=== PATIENT | female | born 1965 | race Caucasian/White ===

== ENCOUNTER 2017-03-25 08:26 | Observation (INO) ==
[2017-03-25] MEDS ORDERED: Regadenoson 0.4 MG/5 ML SYRINGE IVP ONE (08:41)
[2017-03-25] MEDS ORDERED: Ondansetron ODT 4 MG TAB.RAPDIS SL PRN (11:23)
[2017-03-25] MEDS ORDERED: Naloxone 0.4 MG/ML INJ IVP PRN (11:23)
[2017-03-25] MEDS ORDERED: Acetaminophen 325 MG TABLET PO PRN (11:23)
--- NOTE | 2017-03-25 11:26 | Cardiology History & Physical ---
Date of Encounter: 03/25/17 Time of Encounter: 11:00 Assessment and Plan (1) Chest pain Current Visit: Yes Status: Acute Symptoms concerning for unstable angina. Increasing chest pain over the last three days. Pain does occur with activity and is relieved with rest. Exercise stress test completed one month ago was not completed due to failure to achieve HR, She was noted to have blunted blood pressure response and hypotension during recovery. She was scheduled to do a pharmacologic test today. Unable to complete due to bradycardia and hypotension. With increasing symptoms she is recommended to undergo LHC. Indications, benefits, risks, and alternatives discussed. She agrees to proceed. TTE ordered. Check CBC, BMP, and coags prior to LHC. Will continue IV fluid for hypotension. Qualifiers: Chest pain type: unspecified Qualified Code(s): R07.9 - Chest pain, unspecified (2) Abnormal stress test Current Visit: Yes Status: Acute (3) Bradycardia Current Visit: Yes Status: Acute HR found to be in the 40's today. New finding per patient. C/o increasing fatigue and chest pain. Planning for LHC today to r/o ischemic cause. Check TSH. Avoid AV phil blockers. Continue to monitor telemetry. History of Present Illness Chief complaint: Chest pain and fatigue HPI: Ms. Faye is a 51 year old female with a history of hypothyroidism and tobacco use who presented to the out patient stress lab for a pharmacologic stress test. Stress test ordered by Dr. Leonard for chest pain. She was set up for her stress test and found to have sinus bradycardia with heart rate at 44 bpm and T wave inversion. Her blood pressure was found to be 84/58. She was given 750 ml of IV fluid with no improvement in HR or blood pressure. She c/o fatigue. Denies dizziness or lightheadedness. She voiced concern of increasing chest pain symptoms over the past three days. C/o midsternal chest pressure with activity or at rest. Chest pain improves with rest. Denies SOB or diaphoresis. I reviewed findings with Dr. Leonard and direct admission for evaluation and treatment is recommended. Patient agrees with plan. Past Med Surg Social Fam HX - Past Medical History Medical history: thyroid disease Psychiatric history: anxiety, panic disorder - Past Surgical History Surgical History: hysterectomy - Social History Smoking Status: Current every day smoker Smokeless Tobacco Status: No Alcohol use: rarely Drug use: none Medications and Allergies Levothyroxine Sodium [Synthroid] 137 mcg PO DAILY 08/11/16 [History] Multivitamin [Multivitamins] 1 each PO DAILY 08/11/16 [History] Pantoprazole Sodium [Protonix] 40 mg PO DAILY 08/11/16 [History] Doxycycline 100 mg PO BID #14 capsule 02/05/17 [Rx] Allergies sulfamethoxazole [From Bactrim] Adverse Reaction (Verified 02/05/17 06:27) Gastrointestinal Upset trimethoprim [From Bactrim] Adverse Reaction (Verified 02/05/17 06:27) Gastrointestinal Upset All Systems Review: A 10-system review of systems was performed and is negative for pertinent findings except as documented above in the HPI. Physical Examination HR 44 bpm, B/p 84/58. General: Conversant, No Apparent Distress HEENT: Atraumatic, Normocephaly, Mucus Membranes Moist Neck: No JVD, Normal carotid pulses Cardiac: Reg Rate and Rhythm, Normal S1 and S2, No Murmur Lungs: Normal Breath Sounds, No Wheeze, Rales, Rhonchi Neuro: Alert and responsive, No focal deficits noted Abdomen: Soft, Non-Tender Skin: No rashes noted on visualized skin Musculoskeletal: No Chest Wall Tenderness Extremities: No Clubbing, No Cyanosis, No Edema, Normal Pulses Results Intake and Output 03/24/17 03/25/17 03/25/17 23:59 07:59 15:59 Other: Weight 68.039 kg Patient Weight 03/25/17 23:59 Weight 68.039 kg - Imaging and Cardiology Stress Test: pending Echo: pending
[2017-03-25] MEDS ORDERED: 0.9 % Sodium Chloride 500 ML IVC ONE (11:58)
--- NOTE | 2017-03-25 12:45 | Nuclear Medicine Stress Report ---
Single NUC read Name: Iris Faye Date of Study: 03/25/2017 Date: 1965 Ht: 68.0 in Medical Record#: [id number] Age: 51 Wt: 150.0 lb Gender: Female Order #: [id number] Location: [facility] OP Room: Reading Physician: Gaston Gonzalez DO, FACC, FASE, FASNC Ordering Physician: Guille Leonard MD, [facility] Panel Assembler: Haile Harris Impression: Only rest imaging was obtained, which demonstrated a mild intensity, apical septal defect. Stress imaging was not obtained and study was cancelled at ordering physicians request. Nuclear Summary: SPECT myocardial perfusion imaging using Tc99m Sestamibi given intravenously was performed at rest and following cardiac stress testing. The resting images were obtained following initial dose of 10.8 mCi. Findings: Comments * Stress imaging was not obtained. Study cancelled per ordering physician. Apical Perfusion Stress * The apical septal segment shows a mild reduction in perfusion. Updated by Gaston Gonzalez DO, FACC, FASE, FASNC on 03/25/2017 12:38:29 PM electronically signed on 03/25/2017 12:39:29 PM with status of Final
[2017-03-25 12:51] LABS: Basophils # 0.1 K/mcL (0.0-0.2); Basophils % 0.9 %; Eosinophils # 0.2 K/mcL (0.0-0.6); Eosinophils % 2.9 %; Hematocrit 35.3 % (35.3-44.9); Hemoglobin 11.7 g/dL (11.5-15.4); Immature Granulocytes % 0.6 % (0-4); Lymphocytes # 2.4 K/mcL (0.6-4.6); Lymphocytes % 35.7 %; Mean Corpuscular HGB Conc 33.1 g/dL (31.6-35.5); Mean Corpuscular Hemoglobin 30.5 pg (28.0-33.3); Mean Corpuscular Volume 92.2 fL (83.0-100.0); Mean Platelet Volume 8.8 fL (9.4-12.4); Monocytes # 0.7 K/mcL (0.0-1.3); Monocytes % 10.9 %; Neutrophils # 3.3 K/mcL (1.6-8.9); Platelet Count 205 K/mcL (140-400); Red Blood Count 3.83 M/mcL (3.82-4.97); Red Cell Distribution Width 12.3 % (11.5-14.5)
[2017-03-25 12:57] LABS: INR 1.1; Prothrombin Time 11.4 Seconds (9.4-12.1)
[2017-03-25 13:00] LABS: Activated Partial Thrombo Time 31.3 Seconds (26.0-36.0)
[2017-03-25 13:04] LABS: Alanine Aminotransferase 11 Units/L (0-55); Albumin 3.4 g/dL (3.5-5.0); Albumin/Globulin Ratio 1.2 (1.1-2.2); Alkaline Phosphatase 49 Units/L (38-126); Aspartate Amino Transferase 13 Units/L (5-34); BUN/Creatinine Ratio 18 (6-26); Bilirubin,Total 0.4 mg/dL (0.2-1.2); Blood Urea Nitrogen 17 mg/dL (7-20); Calcium 8.7 mg/dL (8.6-10.8); Carbon Dioxide 25 mEq/L (19-29); Chloride 110 mEq/L (98-109); Globulin 2.8 g/dL (2.4-3.5); Glucose 79 mg/dL (70-99); Osmolality,Calculated 286 (280-300); Potassium 4.3 mEq/L (3.5-4.5); Sodium 138 mEq/L (136-145); Total Protein 6.2 g/dL (6.0-8.3); eGFR For African Americans > 60 (> 60); eGFR For Non-African Americans > 60 (> 60)
[2017-03-25 13:26] LABS: Thyroid Stimulating Hormone 3.709 mcIU/mL (0.350-4.840)
--- NOTE | 2017-03-25 13:27 | Pre-Sedation Evaluation ---
Pre-sedation evaluation - Pre-sedation checklist Date of procedure: 03/25/17 Procedure: [facility] Recent Vitals: Last Vital Signs Temp 97.8 F 03/25/17 12:20 Pulse 42 03/25/17 12:20 Resp 16 03/25/17 12:20 BP 95/63 03/25/17 12:20 Pulse Ox 100 03/25/17 12:20 H&P (including ROS) documented in medical record: Yes Previous reaction to sedatives/anesthetics: No Dietary Status: NPO after Midnight Dentition: No loose teeth or bridges ASA Classification *see protocol: CLASS II-Mild systemic disease Plan of Care: Pt appropriate candidate for procedure/moderate/conscious sedation , Risks/benefits of procedure/sedation discussed w/ patient/family
[2017-03-25] MEDS ORDERED: Heparin 1,000 UNITS/500 mL NS 500 ML ONE (14:42)
[2017-03-25] MEDS ORDERED: Verapamil 5 MG/2 ML VIAL ONE (14:42)
[2017-03-25] MEDS ORDERED: 0.9 % Sodium Chloride 1,000 ML ONE ×3 (14:42→15:22)
[2017-03-25] MEDS ORDERED: Nitroglycerin 1,000 MCG/10 ML VIAL IV ONE (14:42)
[2017-03-25] MEDS ORDERED: *HR* Heparin 10,000 UNIT/10 ML VIAL ONE (14:42)
[2017-03-25] MEDS ORDERED: *HR* Midazolam HCl 2 MG/2 ML VIAL ONE ×2 (14:56→15:20)
[2017-03-25] MEDS ORDERED: *HR* FentaNYL (PF) 100 MCG/2 ML VIAL ONE (14:56)
[2017-03-25] MEDS ORDERED: DOPamine Premix 0 MG/0 ML BAG ONE (15:10)
--- NOTE | 2017-03-25 15:46 | Invasive Diagnostic Lab Proc ---
Name: Iris Faye Date of Study: 03/25/2017 Date: 1965 Ht: 66.9in Medical Record#: [id number] Age: 51 Wt: 149.91lb Gender: Female BSA: 1.79 Order #: [id number] BMI: 23.53 Physicians Procedure Physician: Brock Novoa MD, [facility] Referring MD: Referring MD: Staff Name Position Time In Yesica Bryan RN Security Guard Supervisor 03:02 PM Lazara Moses RT (R) Scrub 03:03 PM Antonio Herr RT (R) Monitor 03:04 PM Indications Indication Abnormal Test - Stress Procedures Performed Procedure L HRT ARTERY/VENTRICLE ANGIO Pre-Procedure Checklist Informed consent is complete signed and on chart. H\\T\\P is on chart. ID band is on and ID verified with patient. Patient NPO for procedure The procedure was described for the patient and questions were answered. Blood Pressure: 95/63 ECG is on chart. Rhythm: Sinus Bradycardia Plan of Care Patient will tolerate the procedure without complications. Adequate level of comfort will be maintained. Hemodynamics will remain stable Patient will recover from procedure without complications. Respiratory function will be maintained. Cardiac rhythm will remain stable. Patient temperature will be maintained. Patient and/or family have verbalized understanding of the procedure. Patient Education Chief Complaint/Reason for Test: Cardiac Cath Developmental Category: Adult (18-64 years) Developmentally Appropriate for Age: Yes Learning Barriers: None Education Needs: Procedure Education Method: Verbal Information Taught: Cardiac Cath Educational Evaluation: Able to repeat information Intravenous Access Time IV Size Location DC'd Fluid/Drip Rate Units RN 03:05 PM 22g 1 " Peripheral-Lock On Arrival Lt Hand 0.9NaCl 25 mg/hr Yesica Bryan RN Allergies sulfamethoxazole trimethoprim Vital Signs Time BP (mmHg) HR (bpm) O2 Sat. RR (bpm) LOC 03:06 PM 95 / 63 39 99 % 10 5 = Fully awake and oriented or at pre-proc level 03:08 PM / % 5 = Fully awake and oriented or at pre-proc level 03:08 PM / % 4 = Oriented but drowsy 03:05 PM 120 / 103 43 % 30 03:08 PM 93 / 60 50 % 13 03:12 PM 112 / 62 41 99 % 15 03:14 PM 103 / 68 44 100 % 15 03:17 PM 87 / 61 47 100 % 13 03:19 PM 78 / 59 44 100 % 13 03:22 PM 92 / 56 45 100 % 13 03:24 PM 93 / 59 47 100 % 15 03:27 PM 77 / 58 46 99 % 14 03:30 PM 78 / 61 46 100 % 14 03:34 PM 112 / 40 44 % 12 03:23 PM / % 4 = Oriented but drowsy Procedural Medications Time Medication Dose Units Method Given By 03:07 PM Oxygen 2 L/min nasal cannula Yesica Bryan RN 03:09 PM Versed 2 mg Intravenous Yesica Bryan RN 03:09 PM Fentanyl 50 mcg Intravenous Yesica Bryan RN 03:20 PM Lidocaine 2% 20 ml Subcutaneous Brock Novoa MD, FACC 03:20 PM Versed 1 mg Intravenous Yesica Bryan RN ASA Classification: CLASS II- Mild systemic disease (i.e. well-controlled diabetes, hypertension, asthma, cigarette smoking) Aubrey Score Preprocedure Postprocedure Activity 2- Moves 4 extremities sustained head lift Activity 2- Moves 4 extremities sustained head lift Circulation 2- SBP +/= 20 points of pre-anesthetic level Circulation 2- SBP +/= 20 points of pre-anesthetic level Consciousness 2- Awake and alert oriented x 3 Consciousness 2- Awake and alert oriented x 3 O2 Saturation 2- Able to maintain O2 satruation of 92% on room air O2 Saturation 2- Able to maintain O2 satruation of 92% on room air Respiratory 2- Able to deep breathe and cough well Respiratory 2- Able to deep breathe and cough well Total Score 10 Total Score 10 Contrast Agent: Isovue Diagnostic Contrast: 49 ml Total Contrast: 49 ml Fluoro Dose: 84 mGy Procedure Log Time Note Enter By 03:01 PM Pt arrived to [employer] laborer 2 at 15:01 [email or web address] 03:01 PM Patient charges- Angio tray pack, Navilyst 3mm J, Pulse Oximetry and ACIST tubing and transducer [email or web address] 03:01 PM Physician arrived 15:01 [email or web address] 03:01 PM Ian and ewa completed [email or web address] 03:01 PM Sign in performed according to hospital policy. [email or web address] 03:01 PM ASA Class CLASS II- Mild systemic disease (i.e. well-controlled diabetes, hypertension, asthma, cigarette smoking) [email or web address] 03:02 PM Case Delayed No [email or web address] 03:02 PM Procedure start 15:02 [email or web address] 03:02 PM CathStat 03:03 PM Yesica Bryan RN Position: Security Guard Supervisor Time in: 15:02 [email or web address] 03:04 PM Lazara Moses RT (R) Position: Scrub Time in: 15:03 [email or web address] 03:04 PM Antonio Herr RT (R) Position: Monitor Time in: 15:04 [email or web address] 03:04 PM Vitals capture started with the following parameters, Patient=Adult, Interval=3 min, Initial Xtkkvbda=981 mmHg, Deflation Rate=5 mmHg, Cuff placed on Right Arm 03:05 PM HR=43 bpm, SEIF=604/103 mmhg, Resp=30 B/min, Aubrey=10, Comment=SB 03:06 PM Recorded ECG: HR=41 Condition=Condition 1 03:07 PM Hair removed from procedure site in procedure lab using clippers. Bilateral groin prepped with Chloraprep by Lazara Moses (R), safety strap applied then patient was draped. Skin intact. [email or web address] 03:08 PM Time: 15:07 Oxygen on at 2 L/min per nasal cannula by Yesica Bryan RN [email or web address] 03:08 PM Time: 15:08 Patient comfortable and pain free: Yes [email or web address] 03:08 PM Time: 15:08LOC: 5 = Fully awake and oriented or at pre-proc level [email or web address] 03:08 PM HR=50 bpm, NIBP=93/60 mmhg, Resp=13 B/min, Aubrey=10, Comment=SB 03:09 PM Time: 15:09 Versed 2 mg Intravenous Given by Yesica Bryan RN [email or web address] 03:09 PM Time: 15:09 Fentanyl 50 mcg Intravenous Given by Yesica Bryan RN [email or web address] 03:10 PM Pressure channel 1 zero failed. 03:10 PM Pressure channel 1 zeroed. 03:12 PM HR=41 bpm, ELNM=605/62 mmhg, SpO2=99.0 %, Resp=15 B/min, Comment=SB 03:14 PM HR=44 bpm, POTA=081/68 mmhg, YyS6=474.0 %, Resp=15 B/min, Comment=SB 03:17 PM HR=47 bpm, NIBP=87/61 mmhg, EyU0=875.0 %, Resp=13 B/min, Comment=SB 03:18 PM Vitals capture stopped. 03:18 PM Vitals capture started with the following parameters, Patient=Adult, Interval=3 min, Initial Vleysqqw=388 mmHg, Deflation Rate=5 mmHg, Cuff placed on Right Arm 03:19 PM HR=44 bpm, NIBP=78/59 mmhg, RvK4=705.0 %, Resp=13 B/min, Comment=SB 03:19 PM Time out performed according to hospital policy [email or web address] 03:20 PM Time: 15:20 20. ml Lidocaine 2% to right groin Subcutaneous Given by Brock Novoa MD, [facility] [email or web address] 03:20 PM Time: 15:20 Versed 1 mg Intravenous Given by Yesica Bryan RN [email or web address] 03:20 PM Vitals capture stopped. 03:21 PM Vitals capture started with the following parameters, Patient=Adult, Interval=3 min, Initial Jqqgqurn=693 mmHg, Deflation Rate=5 mmHg, Cuff placed on Right Arm 03:21 PM Access obtained by percutaneous puncture. 5Fr 10cm Terumo [place] sheath placed in right Femoral artery. [id number] ilson 03:21 PM 0.035 145cm Navilyst 3mmJ wire [id number] ilson 03:22 PM 5Fr FL 4 catheter inserted over the wire [facility] 03:22 PM HR=45 bpm, NIBP=92/56 mmhg, ZjB6=369.0 %, Resp=13 B/min, Comment=SB 03:22 PM LCA angiography performed in multiple views. 03:22 PM Recorded Pressure: Ao, HR=43, Condition=Condition 1 (Aorta) Ao 80/50/64 03:23 PM Time: 15:08 Patient comfortable and pain free: Yes [email or web address] 03:23 PM Time: 15:08LOC: 4 = Oriented but drowsy [email or web address] 03:23 PM Catheter removed [email or web address] 03:23 PM Proximal Left Anterior Descending Coronary Artery with 10% stenosis. If graft is supplying this territory, 0 % stenosis. [email or web address] 03:23 PM Lesion found in Proximal LAD. Pre Stenosis: 100 Pre NEGAR Flow: ilson 03:23 PM 5Fr FR 4 catheter inserted over the wire [facility] 03:24 PM Mid/Distal Left Anterior Descending Coronary Artery and diagonal branches with 15% stenosis. If graft is supplying this area, 0 % stenosis [email or web address] 03:24 PM Lesion found in Mid LAD. Pre Stenosis: 15 Pre ENGAR Flow: [email or web address] 03:24 PM RCA angiography performed in multiple views. [email or web address] 03:24 PM HR=47 bpm, NIBP=93/59 mmhg, UiA1=743.0 %, Resp=15 B/min, Comment=SB 03:24 PM Recorded Pressure: Ao, HR=49, Condition=Condition 1 (Aorta) Ao 79/55/67 03:25 PM Catheter removed bw 03:25 PM Coronary Dominance: right [email or web address] 03:25 PM Right Coronary, Right Posterior Descending Arteries with Right Posterolateral and Acute Marginal branches with 15 % stenosis. If graft is supplying this area, 0 % stenosis [email or web address] 03:25 PM Lesion found in Proximal RCA. Pre Stenosis: 15 Pre NEGAR Flow: [email or web address] 03:25 PM 5Fr Pigtail catheter inserted over the wire [facility] bw 03:25 PM Catheter selectively placed in left ventricle [email or web address] 03:26 PM Recorded Pressure: LV, HR=54, Condition=Condition 1 (Left Ventricle) LV 88/-1/14 03:26 PM Bolus angiogram of left Ventricle complete: 10 ml/sec for a total of 20 mls [email or web address] 03:26 PM Recorded Pressure: LV, Ao, HR=55, Condition=Condition 1 (Left Ventricle) LV 84/5/7, (Aorta) Ao 84/42/62 03:27 PM Catheter removed bw 03:27 PM HR=46 bpm, NIBP=77/58 mmhg, SpO2=99.0 %, Resp=14 B/min, Comment=SB 03:27 PM Bolus angiogram of right Femoral complete: 4 ml/sec for a total of 7 mls [email or web address] 03:27 PM Procedure completed at 15:27 [email or web address] 03:28 PM Isovue 370 - 200ml,1 Bottle(s) used. [email or web address] 03:28 PM Arterial sheath pulled, Mynx closure device used and was Successful [id number] S/N. [email or web address] 03:29 PM Post ECG Sinus Bradycardia [email or web address] 03:29 PM Post Blood Pressure 77/58 [email or web address] 03:29 PM Information taught Cardiac Cath and Mynx [email or web address] 03:30 PM HR=46 bpm, NIBP=78/61 mmhg, JoG4=530.0 %, Resp=14 B/min, Comment=SB 03:30 PM Learning barriers :Sedated [email or web address] 03:30 PM Education Methods Verbal [email or web address] 03:30 PM Education evaluation Needs further instruction [email or web address] 03:31 PM Sign out completed: Radiation Dose 84.36 mGy Fluoro Time: 0.8 Isovue 370 - 200ml contrast 49 ml given by Brock Novoa MD, FACC. Complications: NoneCardiac Rehab Consult needed: NoConfirmed administered medications: No [email or web address] 03:31 PM hematoma rt groin manual pressure held Lazara Moses RT [email or web address] 03:31 PM Delay to floor No [email or web address] 03:32 PM no family present [email or web address] 03:32 PM Complications: None [email or web address] 03:32 PM Fluoro Time: 0.8 [email or web address] 03:32 PM Isovue 370 - 200ml contrast 49 ml given by Brock Novoa MD, FACC. [email or web address] 03:32 PM Radiation Dose 84.36 mGy [email or web address] 03:33 PM Site status No bleeding/hematoma - Rt Groin as reported by Lazara Moses RT (R) at 15:33 [email or web address] 03:33 PM Opsite applied [email or web address] 03:34 PM HR=44 bpm, LERN=083/40 mmhg, Resp=12 B/min, Comment=SB 03:36 PM Vitals capture stopped. 03:37 PM 15:37 Post Pulses Bilateral DP 2+ [email or web address] 03:37 PM 15:37 Post Pulses Bilateral PT 1+ [email or web address] 03:37 PM Patient out of room: 15:37 [email or web address] 03:38 PM Report given to daivd WOODS Pt taken to 2N Room #2. 15:37 [email or web address] 03:38 PM Time: 15:23 Patient comfortable and pain free: Yes [email or web address] 03:38 PM Time: 15:23LOC: 4 = Oriented but drowsy [email or web address] Complications Complication None None Hemodynamics Pressures Site Systolic/A Wave Diastolic/V Wave Mean AO 80 50 64 AO 79 55 67 LV 88 -1 14 LV 84 5 7 AO 84 42 62 Post Procedure Information Blood Pressure: 77/58 mmHg Rhythm: Sinus Bradycardia Post procedural instructions were given Closure Device Time Device Success/Fail 03/25/2017 3:28:00 PM MynxGrip Site Checks Time Location Status Staff Sheath In? Note 03:33 PM Rt Groin No bleeding/hematoma Lazara Moses RT (R) Pulses Time Site Pre-Procedure Post-Procedure Note 03/25/2017 2:41:00 PM Bilateral DP 2+ 03/25/2017 2:41:00 PM Bilateral PT 1+ 03/25/2017 2:41:00 PM Bilateral radial 2+ 3:37:00 PM Bilateral DP 2+ 3:37:00 PM Bilateral PT 1+ Updated by Antonio Herr RT (R) on 03/25/2017 3:39:31 PM Antonio Herr RT electronically signed on 03/25/2017 3:39:59 PM with status of Final
[2017-03-26 07:45] VITALS: BP 122/66
--- NOTE | 2017-03-26 08:05 | Discharge Summary ---
Date of Encounter: 03/26/17 Time of Encounter: 08:05 - Discharge Diagnosis (1) Chest pain Priority: Primary Status: Acute Qualifiers: Chest pain type: unspecified Qualified Code(s): R07.9 - Chest pain, unspecified (2) Abnormal stress test Priority: Primary Status: Acute (3) Bradycardia Priority: Primary Status: Acute - Discharge Medications Home Medications: Multivitamin [Multivitamins] 1 tab PO DAILY 08/11/16 [History] Levothyroxine [Synthroid] 150 mcg PO HS 03/25/17 [History] Allergies/Adverse Reactions: Allergies sulfamethoxazole [From Bactrim] Adverse Reaction (Verified 02/05/17 06:27) Gastrointestinal Upset trimethoprim [From Bactrim] Adverse Reaction (Verified 02/05/17 06:27) Gastrointestinal Upset Procedures/tests Complete & Pending: Procedures Performed prior 72 hours Category Date Time Status CL Cardiac Catheterization [CL] Routine Hospital Pharmacist 03/25/17 11:21 Ordered NM keyur perf SPECT single [NM] Routine Exams 03/25/17 08:15 Taken EV echocardiogram Routine Y 03/25/17 10:30 Completed Date of admission: 03/25/17 11:16 Primary care physician: Agusto Cerda MD Consults: none Discharging clinician: Miguel Angel Goode Anticipated date of discharge: 03/26/17 - Patient Status Disposition: Left Against Medical Advice Condition: Good Overall status at discharge: patient is not back to baseline - Discharge Instructions Follow Up With: Agusto Cerda MD [Primary Care Provider] - (SENT WEB REQUEST ON 03-25-17 @ 1744) Guille Leonard MD [Partnered Physician] - 04/22/17 10:30 am - Hospital Course Hospital course: Ms. Faye is a 51 year old female with a history of hypothyroid and tobacco use who presented to the out-pt stress lab for a scheduled stress test. She was found to have bradycardia and hypotension. Heart rate in the low 40's and b/p 84 /58. She c/o fatigue and increasing chest pain over the last three days. She was directly admitted to cardiology service for evaluation. Standard exercise stress test one month ago was not completed due to failure to achieve heart rate. There was blunted blood pressure response and hypotension in recovery. Symptoms were concerning for unstable angina. She was recommended to undergo LHC at was found to have minimal CAD. She was monitored overnight on telemetry. Avg HR was 50 bpm sinus bradycardia. Minimum HR was 38 pm at 1238 pm. No significant pauses. No VT or atrial tachycardia seen. At 7:45 am this morning she left AMA. Nursing staff reported that she wanted to leave to smoke. A nicotine patch was offered and she declined. She is scheduled for f/u in the cardiology office 04/22/17. No events reported overnight. - Time Spent with Patient Total time spent providing and/or coordinating discharge services: Specific discharge activities: Pt left AMA Physical Examination Vital Signs, Last 4 Hours Temp Pulse Resp BP Pulse Ox 03/26/17 07:40 98.2 F 64 19 122/66 94 03/26/17 04:20 46 03/26/17 04:15 98.0 F 58 18 89/65 99 Other: Patient left AMA before she could be examined.
[2017-03-26] MEDS ORDERED: NON-FORMULARY MEDICATION 1 EACH EACH (Pantoprazole Sodium [Protonix] 40 MG) PO SCH (09:00)
[2017-03-26] MEDS ORDERED: Multivit/Ca/Min/Fe/FA 1 TAB TABLET PO SCH (09:00)
--- NOTE | 2017-03-26 15:44 | Invasive Diagnostic Lab ---
Name: Iris Faye Date of Study: 03/25/2017 Date: 1965 Ht: 170.0 cm /66.9 in Medical Record#: [id number] Age: 51 Wt: 68. kg / 149.91 lb Account/Order#: [id number] Gender: Female BSA: 1.79 Order #: [id number] Fluoro Dose: 84 mGy BMI: 23.53 Procedure Physician: Brock Novoa MD, FACC Referring MD: Referring MD: Procedures Performed: LEFT HEART CATH Iliofemoral angiography with cath Indications: Abnormal Test - Stress Impressions: There is mild two vessel coronary artery disease. The left ventricle is normal and has borderline low abnormal contractility EF 45-50% Recommendations: Optimal medical therapy of patient's disease. Aggressive risk factor modification. History/Risk Factors: CP HYPOTHYROID BRADYCARDIA Current/Recent Smoker Procedure Access obtained in the right Femoral artery by percutaneous puncture Complications: None, None Contrast: Isovue 49ml Closure Device: MynxGrip Hemodynamics: Pressures Site Systolic/ A Wave Diastolic/ V Wave End Diastolic/ Mean HR AO 80 50 64 43 AO 79 55 67 49 LV 88 -1 14 54 LV 84 5 7 67 AO 84 42 62 47 LV Ventriculography Ejection Method: LV Gram Ejection Fraction: 45-50% Wall Motion: NUNEZ Anterobasal Mild Hypokinesis Anterolateral Mild Hypokinesis Apical: Mild Hypokinesis Inferoapical Mild Hypokinesis Inferobasal Mild Hypokinesis Coronary Dominance: right Lesion Findings/Interventions * Left Main Coronary Artery The LMCA is angiographically free of disease. * Left Anterior Descending There is a 10% stenosis in the Proximal LAD. There is a 15% stenosis in the Mid LAD. * Circumflex The Circumflex is angiographically free of disease. The 1st Marginal is angiographically free of disease. * Right Coronary Artery There is a 15% stenosis in the Proximal RCA. Right iliofemoral angiography - visualized portion of distal EI, CARTON REPAIRER, and proximal SFA/profunda without significant disease Updated by Antonio TAMAYO (Aleks) on 03/25/2017 3:35:40 PM Brock Novoa MD, FACC electronically signed on 03/26/2017 3:39:23 PM with status of Final
== END 2017-03-26 07:45 | disposition left against medical advice (07) ==
LOC: 2NNU 08:26 → CARSER 08:26
PROVIDERS: ADMIT Internal Medicine Cardiovascular Disease; ATTEND Internal Medicine Cardiovascular Disease